=== PATIENT | female | born 1985 ===

== ENCOUNTER 2023-08-01 13:04 | Outpatient (AMB) | payer OTHER, SELFPAY ==
--- NOTE | 2023-08-01 13:07 | A.OFFPC_ITS ---
Vital Signs 08/01/23 13:09 Height 4 ft 9 in Weight 136 lb 2 oz BMI 29.5 BP 110/68 Blood Pressure Location Lt brachial Position Sitting Pulse 76 Pulse Source Pulse Oximeter Pulse Oximetry (%) 98 Oxygen Delivery Method Room Air Intake Visit Reasons: est care Intake Note: Patient is a new patient here to establish care for Allergies, Anemia, Asthma, Eczema, Depression, Anxiety. Transferring care from [facility]. Medical records have not been requested and have not received. Director Security Risk Management Required: No Packing Checker: Present Accompanied by: Mother Allergies No Known Allergies Allergy (Verified 08/01/23 13:35) Medication List - Last Reconciled 08/01/23 by Dago Graff MD diphenhydramine HCl (Benadryl Allergy) 50 mg PO BID Tobacco use date assessed: 08/01/23 Dental Screening Dental Screen Date: 08/01/23 Did you have a dental visit in the last 12 months?: No Did you have a dental problem in the last 6 months where you did not have access to dental care?: No Was dental information given to patient?: No HPI est care HPI Details 37-year-old female presents to the offic e to establish her care. She has transferring from a provider in [place]. Patient does not recall her name. She reports that allergic rhinitis is her only active medical condition. She has been using Benadryl which is making her tired.. She would like a refill on the Flonase Zyrtec and albuterol that she has used in the past. Patient is on SSI but not very forthright for the reasons. Nonsmoker and denies any consumption of alcohol or drugs. Patient reports she has no kids. Not seeing any mental health provider or counselor. Not on any medications for mental health. [facility] Medical History (Updated 08/01/23 @ 13:38 by Dago Graff MD) Allergic rhinitis Surgical History History of eye surgery Family History Other Mental health disorder Substance use disorder Social History Housing: Apartment Alcohol intake: never Patient Tobacco Use Status: Current everyday Tobacco user Tobacco use type: Cigarette Cigarette Packs Per Day: 0.5 Cigarettes Per Day: 10 e-Cigarette/Vaping Use: Never Used Second Hand Smoke Exposure: Yes service: No Current occupational status: disabled Cognitive needs: No Hearing needs: No Vision needs: Yes (Glasses) Questionnaire PHQ-9 Over the last 2 weeks, how often have you been bothered by any of the following problems? 1. Little interest or pleasure in doing things: not at all 2. Feeling down, depressed, or hopeless: nearly every day 3. Trouble falling or staying asleep, or sleeping too much: more than half the days 4. Feeling tired or having little energy: several days 5. Poor appetite or overeating: several days 6. Feeling bad about yourself - or that you are a failure or have let yourself or your family down: nearly every day 7. Trouble concentrating on things, such as reading the newspaper or watching television: not at all 8. Moving or speaking so slowly that other people could have noticed. Or the opposite - being so fidgety or restless that you have been moving around a lot more than usual: nearly every day 9. Thoughts that you would be better off or of hurting yourself in some way: not at all Total score: 13 Depression Screening Interpretation: Positive Depression Screening Follow-up: Existing condition and Community Mental Health Worker F/U Depression Screening Done: Yes Source: Developed by Drs. Aman Gonzalez, Dorothea Bowen, Matt Tsai and colleagues, with an educational theron from [employer]. Thrive Questionnaire Date Thrive assessed: 08/01/23 I am a: Patient What is your living situation today?: I have a steady place to live Within the past 12 months, did the food you bought not last and you didn't have the money to get more?: Never true Within the past 12 months, did you worry whether your food would run out before you got money to buy more?: Never true Do you have trouble paying for medicines?: No Do you have trouble getting transportation to medical appointments?: No Do you have trouble paying your heating and electricity bill?: No Do you have trouble taking care of your child, family member or friend?: No Do you have trouble with day-to-day activities such as bathing, preparing meals, shopping, managing finances, etc.?: No Are you currently unemployed and looking for a job?: No Are you interested in more education?: No Currently or been in a relationship where the following occur: no concerns reported THRIVE Score: 0 AUDIT C Alcohol Use Questionnaire (AUDIT-C) 1. How often do you have a drink containing alcohol?: Never Total Score: 0 JEANNIE-7 AMB Questionnaire JEANNIE-7 Date JEANNIE - 7 assessed: 08/01/23 Feeling nervous, anxious, or on edge: 1 = Several days Not being able to stop or control worryin = Nearly every day Worrying too much about different things: 3 = Nearly every day Trouble relaxin = Nearly every day Being so restless that it is hard to sit still: 1 = Several days Becoming easily annoyed or irritable: 3 = Nearly every day Feeling afraid as if something awful might happen: 3 = Nearly every day Total JEANNIE-7 score (0-4 normal; 5-9 mild; 10-14 moderate; 15-21 severe): 17 Source: Developed by Drs. Aman Gonzalez, Dorothea Bowen, Matt Tsai and colleagues, with an educational theron from [employer]. Physical exam (Primary Care) Vital Signs: Last Vital Signs Pulse 76 08/01/23 13:09 BP 110/68 08/01/23 13:09 Pulse Ox 98 08/01/23 13:09 Oxygen Delivery Method Room Air 08/01/23 13:09 Care Plan Goal for BP management: Blood pressure is in range. BMI result Body Mass Index 29.5 Tobacco/Smoking Status: Tobacco use Status Tobacco use date assessed 08/01/23 08/01/23 13:11 Patient Tobacco Use Status Current everyday Tobacco 08/01/23 13:24 Tobacco use type Cigarette 08/01/23 13:24 e-Cigarette/Vaping Use Never Used 08/01/23 13:21 Are you ready to quit: No PHQ-9: PHQ-9 Score PHQ-9: Total score 13 08/01/23 13:24 Depression Screening Interpretation: Positive Depression Screening Follow-up: Existing condition and Community Mental Health Worker F/U Thrive Assessment: Date of Thrive Assessment Date Thrive assessed 06/06/24 06/06/24 13:11 Currently or been in a relationship where the following occur: no concerns reported Const General: cooperative and healthy appearing Nutritional Appearance: well nourished Orientation/consciousness: patient oriented x3 Limitations: no limitations HENMT Head: Yes normal to inspection Eyes General: appearance normal, both eyes and all related structures Neck Neck: Yes normal visual inspection Chest Chest palpation & inspection: normal palpation of entire chest wall Resp Effort & Inspection: normal respiratory effort Neuro General: patient oriented x3 Assessment and Plan Assessment & Plan (1) Allergic rhinitis: Code(s): J30.9 - Allergic rhinitis, unspecified Plan: Loratadine, Flonase and albuterol called in. Patient was advised to use these medications on a regular basis. 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 A therapist has been requested. Will continue to follow. Coding Level of Care Code New Pt Level 4 (69480) Complex EM visit Add On G2211 Diagnoses Allergic rhinitis J30.9 Endogenous depression F33.2
[2023-08-01 13:09] VITALS: BP 110/68; PULSE 76; O2SAT 98; BMI 29.5
== END 2023-08-01 13:57 | disposition home or self-care (01) ==
PROVIDERS: PCP Internal Medicine; Visit Provider Internal Medicine
DX: J30.9 Allergic rhinitis, unspecified (principal); F33.2 Major depressive disorder, recurrent severe without psychotic features
CPT/HCPCS: 99204; G2211

== ENCOUNTER 2023-08-01 14:20 | Outpatient (REF) | payer OTHER, SELFPAY ==
[2023-08-01 15:09] LABS: Appearance Urine Cloudy; Color Urine Yellow; Glucose Urine UA Negative (Negative); Leukocyte Esterase Urine Small (1+) (Negative); Nitrite Urine Negative (Negative); PH 5.5 (5.0-9.0); Specific Gravity - Urine >= 1.030 (1.005-1.025); UMIC TRIGGER UA YES; Urine Blood Trace (Negative); Urine Ketones Negative (Negative); Urine Protein Negative (Neg-Trace)
[2023-08-01 15:29] LABS: Bacteria Urine 4+ (None Seen); Hyaline Casts Urine 0-2 /LPF (0-2); Squamous Epithelial Cell Urine >20 /HPF (0-2); WBC Urine 0-5 /HPF (0-5)
[2023-08-01 15:36] LABS: Alanine Aminotransferase 15 U/L (0-31); Albumin Level 4.4 g/dL (3.5-5.0); Alkaline Phosphatase 51 U/L (39-117); Anion Gap 11 (12-20); Aspartate Amino Transferase 22 U/L (5-31); Bilirubin Direct 0.2 mg/dL (0.0-0.5); Bilirubin Total 0.7 mg/dL (0.0-1.0); Blood Urea Nitrogen 12 mg/dL (9-16); Calcium 9.2 mg/dL (8.4-10.2); Carbon Dioxide 26 mmol/L (22-29); Chloride 108 mmol/L (96-108); Cholesterol 181 mg/dL (<200); Estimated Glomerular Filt Rate > 60; Glucose Random 85 mg/dL (60-115); HDL Cholesterol 56 mg/dL (>40); LDL Cholesterol Calculated 107 mg/dL (<100); Potassium 3.7 mmol/L (3.3-5.1); Sodium 141 mmol/L (135-145); Total Protein 7.2 g/dL (6.5-8.0); Triglycerides 93 mg/dL (<150)
[2023-08-01 15:54] LABS: Thyroid Stimulating Hormone 1.42 uIU/mL (0.32-4.0)
== END 2023-08-01 14:21 | disposition home or self-care (01) ==
LOC: HO.LAB 14:20
PROVIDERS: PCP Internal Medicine; Visit Provider Internal Medicine
DX: J30.9 Allergic rhinitis, unspecified (principal)
CPT/HCPCS: 36415; 80048; 80061; 80076; 81001; 81003; 84443

== ENCOUNTER 2023-11-13 12:51 | Outpatient (AMB) | payer OTHER, SELFPAY ==
--- NOTE | 2023-11-13 13:05 | A.OFFPC_ITS ---
Vital Signs 11/13/23 13:06 Height 4 ft 9 in Weight 137 lb 6 oz BMI 29.7 BP 110/64 Blood Pressure Location Lt brachial Position Sitting Pulse 68 Pulse Source Pulse Oximeter Pulse Oximetry (%) 98 Oxygen Delivery Method Room Air Intake Visit Reasons: 3mof\u Intake Note: Patient is here to follow up on Allergic rhinitis. Complaint of dry skin all over body and break out of face. Surveillance Analyst Required: No Rn Burn: Present Accompanied by: Mother Allergies No Known Allergies Allergy (Verified 11/13/23 13:06) Tobacco use date assessed: 11/13/23 Dental Screening Dental Screen Date: 08/01/23 HPI 3mof\u HPI Details 38-year-old female presents to the offic e to discuss her chronic medical conditions. Patient is reporting that her rash has worsened. She has mildly painful lesions on the face. She feels her fingertips are always itchy and scratchy. Occasionally she sees a rash that appears and then fades away in a few days. No vesicles. Patient acknowledges that she has anxiety but is not willing to take any medications for it. She is on SSI for her educational disability. [facility] Medical History Generalized anxiety disorder Cystic acne Allergic rhinitis Surgical History History of eye surgery Family History Other Mental health disorder Substance use disorder Social History Housing: Apartment Alcohol intake: never Patient Tobacco Use Status: Current everyday Tobacco user Tobacco use type: Cigarette Cigarette Packs Per Day: 0.25 Cigarettes Per Day: 3 e-Cigarette/Vaping Use: Never Used Second Hand Smoke Exposure: Yes service: No Current occupational status: disabled Cognitive needs: No Hearing needs: No Vision needs: Yes (Glasses) Questionnaire Thrive Questionnaire Date Thrive assessed: 08/01/23 Are you currently unemployed and looking for a job?: I choose not to answer this question JEANNIE-7 AMB Questionnaire JEANNIE-7 Date JEANNIE - 7 assessed: 08/01/23 Source: Developed by Drs. Aman L. LisaDorothea weiss, Matt Tsai and colleagues, with an educational theron from [employer]. Physical exam (Primary Care) Vital Signs: Last Vital Signs Pulse 68 11/13/23 13:06 BP 110/64 11/13/23 13:06 Pulse Ox 98 11/13/23 13:06 Oxygen Delivery Method Room Air 11/13/23 13:06 BMI result Body Mass Index 29.7 Tobacco/Smoking Status: Tobacco use Status Tobacco use date assessed 11/13/23 11/13/23 13:09 Patient Tobacco Use Status Current everyday Tobacco 11/13/23 13:11 Tobacco use type Cigarette 11/13/23 13:11 e-Cigarette/Vaping Use Never Used 11/13/23 13:11 Thrive Assessment: Date of Thrive Assessment Date Thrive assessed 08/01/23 11/13/23 13:09 Const General: cooperative and healthy appearing Nutritional Appearance: well nourished Orientation/consciousness: patient oriented x3 Limitations: no limitations HENMT Head: Yes normal to inspection Eyes General: appearance normal, both eyes and all related structures Neck Neck: Yes normal visual inspection Chest Chest palpation & inspection: normal palpation of entire chest wall Resp Effort & Inspection: normal respiratory effort Skin Other: Face: Cystic acne over bilateral cheeks. Some areas are tender to touch. Uppe r extremity: Faint erythematous rash over the forearms. Scratch [place] evident. Neuro General: patient oriented x3 Assessment and Plan Assessment & Plan (1) Cystic acne: Code(s): L70.0 - Acne vulgaris Plan: She can be a candidate for accutane. Minocycline and benzoyl peroxide wash has been prescribed. A dermatology consult has been requested. (2) Generalized anxiety disorder: Code(s): F41.1 - Generalized anxiety disorder Plan: Patient definitely has JEANNIE and underlying depression. She is reluctant to see a therapist or take emt intermediate medications. Some of her symptoms like transient rashes, itching can be attributed to this inadequately treated condition. Orders: Referrals Dermatology Referral L70.0 - Acne vulgaris Medications: New minocycline 100 mg PO BID 28 tabs 0RF benzoyl peroxide 10% (Acne Control (benzoyl peroxide)) 1 appl topical DAILY 148 grams 0RF famotidine (Pepcid AC) 10 mg PO BID 60 tabs 0RF Refilled loratadine (Allergy Relief (loratadine)) 10 mg PO DAILY 90 tabs 1RF Coding Level of Care Code Est Pt Level 4 (82287) Complex EM visit Add On G2211 Diagnoses Cystic acne L70.0 Generalized anxiety disorder F41.1
[2023-11-13 13:06] VITALS: BP 110/64; PULSE 68; O2SAT 98; BMI 29.7
== END 2023-11-13 13:31 | disposition home or self-care (01) ==
PROVIDERS: PCP Internal Medicine; Visit Provider Internal Medicine
DX: L70.0 Acne vulgaris (principal); F41.1 Generalized anxiety disorder

== ENCOUNTER → 2023-11-13 12:51 | Outpatient (BNVA) | payer OTHER, SELFPAY | PROVIDERS: PCP Internal Medicine; Visit Provider Internal Medicine | DX: L70.0 Acne vulgaris (principal); Z79.899 Other long term (current) drug therapy | CPT/HCPCS: 99212 ==

== ENCOUNTER 2024-02-27 12:55 | Outpatient (AMB) | payer OTHER, SELFPAY ==
--- NOTE | 2024-02-27 13:03 | A.OFFPC_ITS ---
Vital Signs 02/27/24 13:09 Height 4 ft 9 in Weight 140 lb 4 oz BMI 30.3 BP 100/66 Blood Pressure Location Lt brachial Position Sitting Pulse 82 Pulse Source Pulse Oximeter Pulse Oximetry (%) 99 Oxygen Delivery Method Room Air Intake Visit Reasons: 3mth f/u Intake Note: Patient is here to follow up on JEANNIE, Allergic Rhinitis. Pt decline flu shot today. Feedmobile Driver Required: No Bottle Booth Attendant: Present Accompanied by: Daughter Allergies No Known Allergies Allergy (Verified 02/27/24 14:53) Medication List - Last Reconciled 02/27/24 by Dago Graff MD albuterol sulfate 90 mcg/actuation 1 inh inhalation QID PRN benzoyl peroxide 10% (Acne Control (benzoyl peroxide)) 1 appl topical DAILY diphenhydramine HCl (Benadryl Allergy) 50 mg PO BID doxycycline hyclate 100 mg PO DAILY famotidine (Pepcid AC) 10 mg PO BID fluticasone propionate 50 mcg/actuation (Flonase Allergy Relief) 1 spray intranasal DAILY loratadine (Allergy Relief (loratadine)) 10 mg PO DAILY Tobacco use date assessed: 11/13/23 Dental Screening Dental Screen Date: 02/27/24 Did you have a dental visit in the last 12 months?: No Did you have a dental problem in the last 6 months where you did not have access to dental care?: No Was dental information given to patient?: No [facility] Medical History Generalized anxiety disorder Cystic acne Allergic rhinitis Surgical History History of eye surgery Family History Other Mental health disorder Substance use disorder Social History Housing: Apartment Alcohol intake: never Patient Tobacco Use Status: Current everyday Tobacco user Tobacco use type: Cigarette Cigarette Packs Per Day: 0.25 Cigarettes Per Day: 3 e-Cigarette/Vaping Use: Never Used Second Hand Smoke Exposure: Yes service: No Current occupational status: disabled Cognitive needs: No Hearing needs: No Vision needs: Yes (Glasses) Questionnaire PHQ-9 Over the last 2 weeks, how often have you been bothered by any of the following problems? 1. Little interest or pleasure in doing things: not at all 2. Feeling down, depressed, or hopeless: not at all 3. Trouble falling or staying asleep, or sleeping too much: not at all 4. Feeling tired or having little energy: not at all 5. Poor appetite or overeating: not at all 6. Feeling bad about yourself - or that you are a failure or have let yourself or your family down: not at all 7. Trouble concentrating on things, such as reading the newspaper or watching television: not at all 8. Moving or speaking so slowly that other people could have noticed. Or the opposite - being so fidgety or restless that you have been moving around a lot more than usual: not at all 9. Thoughts that you would be better off or of hurting yourself in some way: not at all Total score: 0 Depression Screening Interpretation: Negative Depression Screening Done: Yes Source: Developed by Drs. Aman Gonzalez, Dorothea Bowen, Matt Tsai and colleagues, with an educational theron from [employer]. Thrive Questionnaire Date Thrive assessed: 02/27/24 I am a: Patient What is your living situation today?: I have a steady place to live Within the past 12 months, did the food you bought not last and you didn't have the money to get more?: Never true Within the past 12 months, did you worry whether your food would run out before you got money to buy more?: Never true Do you have trouble paying for medicines?: No Do you have trouble getting transportation to medical appointments?: No Do you have trouble paying your heating and electricity bill?: No Do you have trouble taking care of your child, family member or friend?: No Do you have trouble with day-to-day activities such as bathing, preparing meals, shopping, managing finances, etc.?: No Are you currently unemployed and looking for a job?: No Are you interested in more education?: No Please select the resources that you would like help with: None Currently or been in a relationship where the following occur: No concerns reported THRIVE Score: 0 AUDIT C Alcohol Use Questionnaire (AUDIT-C) 1. How often do you have a drink containing alcohol?: Never Total Score: 0 JEANNIE-7 AMB Questionnaire JEANNIE-7 Date JEANNIE - 7 assessed: 02/27/24 Feeling nervous, anxious, or on edge: 0 = Not at all Not being able to stop or control worryin = Not at all Worrying too much about different things: 0 = Not at all Trouble relaxin = Not at all Being so restless that it is hard to sit still: 0 = Not at all Becoming easily annoyed or irritable: 0 = Not at all Feeling afraid as if something awful might happen: 0 = Not at all Total JEANNIE-7 score (0-4 normal; 5-9 mild; 10-14 moderate; 15-21 severe): 0 Source: Developed by Drs. Aman Gonzalez, Dorothea Bowen, Matt Tsai and colleagues, with an educational theron from [employer]. Physical exam (Primary Care) Vital Signs: Last Vital Signs Pulse 82 02/27/24 13:09 BP 100/66 02/27/24 13:09 Pulse Ox 99 02/27/24 13:09 Oxygen Delivery Method Room Air 02/27/24 13:09 BMI result Body Mass Index 30.3 Tobacco/Smoking Status: Tobacco use Status Tobacco use date assessed 11/13/23 02/27/24 13:10 Patient Tobacco Use Status Current everyday Tobacco 02/27/24 13:10 Tobacco use type Cigarette 02/27/24 13:10 e-Cigarette/Vaping Use Never Used 02/27/24 13:10 PHQ-9: PHQ-9 Score PHQ-9: Total score 0 02/27/24 13:10 Depression Screening Interpretation: Negative Thrive Assessment: Date of Thrive Assessment Date Thrive assessed 02/27/24 02/27/24 13:10 Currently or been in a relationship where the following occur: No concerns reported Coding Level of Care Code Est Pt Level 4 (36538) Complex EM visit Add On G2211 Diagnoses Cystic acne L70.0 Generalized anxiety disorder F41.1 Assessment & Plan Assessment & Plan (1) Cystic acne: Code(s): L70.0 - Acne vulgaris Category: Medical Plan: Medications restarted. Instead of minocycline, doxycycline prescription called in. (2) Generalized anxiety disorder: Code(s): F41.1 - Generalized anxiety disorder Category: Medical Plan: Patient is not willing to take medications or follow-up with therapy. Plan History of Present Illness The patient is a 38-year-old female presenting with a request for a refill of acne medication and management of eczema flare-ups. The patient has been experiencing acne issues, for which the treatment included face medication that she has recently run out of. The patient noted improvement with the current cdzs-xqk-hkmakns topical application from [facility]. Additionally, she did not initiate an earlier prescribed antibiotic treatment minocycline due to insurance coverage issues and cost concerns. The patient historically had antibiotic treatment that improved her condition but now needs alternative options. Patient was referred to a steam tank operator in the last office visit. Patient never made it to the appointment. She is requesting a refill on the benzoyl peroxide. Continues to have general anxiety disorder, but declines any medications or therapy. Social History - Reports increased stress and anxiety due to personal management and home- related responsibilities. - No current therapy or counseling for anxiety. - No social discussions involving housing, employment, education, or substance u se. Review of Systems - Psychiatric: Reports anxiety and stress. - Dermatological: Reports dry skin patches. Physical Exam General: Cooperative and healthy appearing Nutritional Appearance: Well nourished Orientation/consciousness: Patient oriented x3 Limitations: No limitations Head: Normal to inspection General: Appearance normal, both eyes and all related structures Neck: Normal visual inspection Chest: Normal palpation of entire chest wall Respiratory: Normal respiratory effort Neurology: Patient oriented x3 Results - Labs: Blood work conducted in July reported as normal. Plan - Prescribe doxycycline for acne treatment as an alternative to minocycline, considering previous insurance coverage issues. - Continue the current ovxd-axn-ehrnrrg topical treatment from [facility] for acne hema chávez. - Monitor the eczema condition and consider topical treatment as needed. - Address anxiety disorder through potential lifestyle modifications and recommend future follow-up on stress management approaches. - Schedule a follow-up appointment in six months. - Order additional blood work as indicated in the conversation for ongoing assessment. Patient was informed and verbally consented to the use of an ambient scribe for clinic note documentation during this visit. Discussion Notes We discussed the need for changing the antibiotic treatment for acne to doxycycline due to cost and coverage issues. I explained that doxycycline is effective for 30-day treatment and we hope her insurance will cover this medication. Continuing with the topical acne treatment from [facility] was agreed upon due to previous improvement in symptoms. We also touched upon the importance of managing stress and anxiety, which could be exacerbating eczema. The patient acknowledged that personal stressors might contribute to these skin issues. We agreed on the necessity to keep eczema under observation and follow up on potential lifestyle changes to aid anxiety management. Consent was gained for future labs, and the importance of regular follow-ups was emphasized. Patient Instructions - Obtain and begin doxycycline prescription for acne as directed. - Continue using nlmx-zog-qhshwkh topical treatment from [facility] for acne. - Observe eczema patches; use moisturizer regularly and discuss if condition worsens. - Manage stress levels through lifestyle modifications. - Complete the additional ordered blood work. - Return for a follow-up visit in six months or sooner if symptoms escalate. - Ensure insurance check on prescription coverage. Orders: Orders Complete Blood Count no Diff Today F41.1 - Generalized anxiety disorder, L70.0 - Acne vulgaris Thyroid Stimulating Hormone Today F41.1 - Generalized anxiety disorder, L70.0 - Acne vulgaris Medications: New doxycycline hyclate 100 mg PO DAILY 30 tabs 0RF Refilled famotidine (Pepcid AC) 10 mg PO BID 60 tabs 0RF loratadine (Allergy Relief (loratadine)) 10 mg PO DAILY 90 tabs 1RF albuterol sulfate 90 mcg/actuation 1 inh inhalation QID PRN 6.7 grams 1RF shortness of breath or wheezing benzoyl peroxide 10% (Acne Control (benzoyl peroxide)) 1 appl topical DAILY 148 grams 1RF Discontinued minocycline Discontinued Reason: Insurance Denied 100 mg PO BID 28 tabs 0RF
[2024-02-27 13:09] VITALS: BP 100/66; PULSE 82; O2SAT 99; BMI 30.3
== END 2024-02-27 14:18 | disposition home or self-care (01) ==
PROVIDERS: PCP Internal Medicine; Visit Provider Internal Medicine
DX: L70.0 Acne vulgaris (principal); F41.1 Generalized anxiety disorder

== ENCOUNTER → 2024-02-27 12:55 | Outpatient (BNVA) | payer OTHER, SELFPAY | PROVIDERS: PCP Internal Medicine; Visit Provider Internal Medicine | DX: L70.0 Acne vulgaris (principal); F41.1 Generalized anxiety disorder | CPT/HCPCS: 96127; 99212 ==

== ENCOUNTER 2024-10-14 10:45 | Outpatient (AMB) | payer OTHER, SELFPAY ==
[2024-10-14 11:07] VITALS: BP 116/76; PULSE 83; RESP 16; TEMP 36.3; O2SAT 98; BMI 30.2
--- NOTE | 2024-10-14 11:07 | A.OFFPC_ITS ---
Vital Signs 10/14/24 11:07 Height 4 ft 9 in Weight 139 lb 8 oz BMI 30.2 BP 116/76 Blood Pressure Location Lt brachial Position Sitting Respiration 16 Pulse 83 Pulse Source Pulse Oximeter Temp 97.3 F Temp Source Temporal Artery Scan Pulse Oximetry (%) 98 Oxygen Delivery Method Room Air Intake Visit Reasons: 6 mo follow up - see comments Accompanied by: Mother Allergies No Known Allergies Allergy (Verified 10/14/24 12:55) Medication List - Last Reconciled 10/14/24 by Dago Graff MD benzoyl peroxide 10% (Acne Control (benzoyl peroxide)) 1 appl topical DAILY Tobacco use date assessed: 10/14/24 Dental Screening Dental Screen Date: 10/14/24 Did you have a dental visit in the last 12 months?: No Did you have a dental problem in the last 6 months where you did not have access to dental care?: No Was dental information given to patient?: No HPI 6 mo follow up - see comments HPI Details 38-year-old female presents to the offic e to discuss her chronic medical conditions. She is accompanied on this visit along with her mother. Patient is compliant with medications for acne. She is not on any antibiotics and only 2 uses the benzoyl peroxide wash. The acne is well controlled with this peroxide wash. Anxiety symptoms are well controlled and currently on no medications. Able to function and do her activities of daily living. Patient reports that her sleep patterns are also stable. Currently she is not working. FORMERLY [facility], [facility] Medical History Generalized anxiety disorder Cystic acne Allergic rhinitis Surgical History History of eye surgery Family History Other Mental health disorder Substance use disorder Social History Housing: Apartment Alcohol intake: never Patient Tobacco Use Status: Current everyday Tobacco user Tobacco use type: Cigarette Cigarette Packs Per Day: 0.25 Cigarettes Per Day: 3 e-Cigarette/Vaping Use: Never Used Second Hand Smoke Exposure: Yes service: No Current occupational status: disabled Cognitive needs: No Hearing needs: No Vision needs: Yes (Glasses) Questionnaire PHQ-9 Over the last 2 weeks, how often have you been bothered by any of the following problems? 1. Little interest or pleasure in doing things: not at all 2. Feeling down, depressed, or hopeless: not at all 3. Trouble falling or staying asleep, or sleeping too much: not at all 4. Feeling tired or having little energy: not at all 5. Poor appetite or overeating: not at all 6. Feeling bad about yourself - or that you are a failure or have let yourself or your family down: not at all 7. Trouble concentrating on things, such as reading the newspaper or watching television: not at all 8. Moving or speaking so slowly that other people could have noticed. Or the opposite - being so fidgety or restless that you have been moving around a lot more than usual: not at all 9. Thoughts that you would be better off or of hurting yourself in some way: not at all Total score: 0 Depression Screening Interpretation: Negative Depression Screening Done: Yes Source: Developed by Drs. Aman Gonzalez, Dorothea Bowen, Matt Tsai and colleagues, with an educational theron from [employer]. Thrive Questionnaire Date Thrive assessed: 02/27/24 I am a: Patient What is your living situation today?: I have a steady place to live Within the past 12 months, did the food you bought not last and you didn't have the money to get more?: Never true Within the past 12 months, did you worry whether your food would run out before you got money to buy more?: Never true Do you have trouble paying for medicines?: No Do you have trouble getting transportation to medical appointments?: No Do you have trouble paying your heating and electricity bill?: No Do you have trouble taking care of your child, family member or friend?: No Do you have trouble with day-to-day activities such as bathing, preparing meals, shopping, managing finances, etc.?: No Are you currently unemployed and looking for a job?: No Are you interested in more education?: No Please select the resources that you would like help with: None Currently or been in a relationship where the following occur: No concerns reported THRIVE Score: 0 AUDIT C Alcohol Use Questionnaire (AUDIT-C) 1. How often do you have a drink containing alcohol?: Never 3. How often do you have six or more drinks on one occasion?: Never Total Score: 0 JEANNIE-7 AMB Questionnaire JEANNIE-7 Date JEANNIE - 7 assessed: 02/27/24 Feeling nervous, anxious, or on edge: 0 = Not at all Not being able to stop or control worryin = Not at all Worrying too much about different things: 0 = Not at all Trouble relaxin = Not at all Being so restless that it is hard to sit still: 0 = Not at all Becoming easily annoyed or irritable: 0 = Not at all Feeling afraid as if something awful might happen: 0 = Not at all Total JEANNIE-7 score (0-4 normal; 5-9 mild; 10-14 moderate; 15-21 severe): 0 Source: Developed by Drs. Aman Gonzalez, Dorothea Bowen, Matt Tsai and colleagues, with an educational theron from [employer]. Physical exam (Primary Care) Vital Signs: Last Vital Signs Temp 97.3 F 10/14/24 11:07 Pulse 83 10/14/24 11:07 Resp 16 10/14/24 11:07 BP 116/76 10/14/24 11:07 Pulse Ox 98 10/14/24 11:07 Oxygen Delivery Method Room Air 10/14/24 11:07 Care Plan Goal for BP management: Blood pressure is in range. BMI result Body Mass Index 30.2 Tobacco/Smoking Status: Tobacco use Status Tobacco use date assessed 10/14/24 10/14/24 11:11 Patient Tobacco Use Status Current everyday Tobacco 10/14/24 11:11 Tobacco use type Cigarette 10/14/24 11:11 e-Cigarette/Vaping Use Never Used 10/14/24 11:11 PHQ-9: PHQ-9 Score PHQ-9: Total score 0 10/14/24 11:11 Depression Screening Interpretation: Negative Thrive Assessment: Date of Thrive Assessment Date Thrive assessed 02/27/24 10/14/24 11:11 Currently or been in a relationship where the following occur: No concerns reported Const General: cooperative and healthy appearing Nutritional Appearance: well nourished Orientation/consciousness: patient oriented x3 Limitations: no limitations HENMT Head: Yes normal to inspection Eyes General: appearance normal, both eyes and all related structures Neck Neck: Yes normal visual inspection Chest Chest palpation & inspection: normal palpation of entire chest wall Resp Effort & Inspection: normal respiratory effort Neuro General: patient oriented x3 Coding Level of Care Code Est Pt Level 4 (00302) Complex EM visit Add On G2211 Diagnoses Cystic acne L70.0 Generalized anxiety disorder F41.1 Assessment & Plan Assessment & Plan (1) Cystic acne: Code(s): L70.0 - Acne vulgaris Category: Medical Plan: Condition is currently controlled with benzoyl peroxide wash. Blood work has been ordered. (2) Generalized anxiety disorder: Code(s): F41.1 - Generalized anxiety disorder Category: Medical Plan: Condition is stable and is not on any medications currently. Medications: Refilled benzoyl peroxide 10% (Acne Control (benzoyl peroxide)) 1 appl topical DAILY 148 grams 1RF Discontinued famotidine (Pepcid AC) Discontinued Reason: Doctor's Order 10 mg PO BID 60 tabs 0RF diphenhydramine HCl (Benadryl Allergy) Discontinued Reason: Doctor's Order 50 mg (2 x 25 mg) PO BID 60 tabs 0RF albuterol sulfate 90 mcg/actuation Discontinued Reason: None 1 inh inhalation QID PRN 6.7 grams 1RF shortness of breath or wheezing fluticasone propionate 50 mcg/actuation (Flonase Allergy Relief) administer into each nostril Discontinued Reason: Doctor's Order 1 spray intranasal DAILY 9.9 mL 1RF
== END 2024-10-14 15:58 | disposition home or self-care (01) ==
LOC: HO.HMCH 10:45
PROVIDERS: PCP Internal Medicine; Visit Provider Internal Medicine
DX: L70.0 Acne vulgaris (principal); F41.1 Generalized anxiety disorder

== ENCOUNTER → 2024-10-14 10:45 | Outpatient (BNVA) | payer OTHER, SELFPAY | PROVIDERS: PCP Internal Medicine; Visit Provider Internal Medicine | DX: F41.1 Generalized anxiety disorder (principal); L70.0 Acne vulgaris | CPT/HCPCS: 99212 ==